=== PATIENT | female | born 1965 | race Caucasian/White ===

== ENCOUNTER 2019-04-11 11:17 | Emergency (ER) | payer OTHER ==
[2019-04-11 12:20] VITALS: BP 129/86
--- NOTE | 2019-04-11 12:32 | UC ---
UC General HPI - HPI Summary HPI Summary: pt is c/o "an ache" to the front and back of her L shoulder x 3 months that is worsening. no hx of an acute injury. it has become constant over the past 3 days. self tx once yesterday with a single dose of motrin. no neck pain. no numb or weakness to the hand. - History of Current Complaint Chief Complaint: UCGeneralIllness Stated Complaint: LEFT SHOULDER PAIN Time Seen by Provider: 04/11/19 12:17 Hx Obtained From: Patient Hx Last Menstrual Period: pt post menopausal Onset/Duration: Gradual Onset Timing: Constant Pain Intensity: 8 Aggravating: any movement Associated Signs & Symptoms: Negative: Fever - Allergy/Home Medications Allergies/Adverse Reactions: Allergies Allergy/AdvReac Type Severity Reaction Status Date / Time No Known Allergies Allergy Verified 04/11/19 12:22 Home Medications: Home Medications Calcium Carbonate [Calcium] 500 mg PO BID 04/11/19 [History Confirmed 04/11/19] Levothyroxine TAB* [Synthroid 100 MCG TAB*] 100 mcg PO DAILY 04/11/19 [History Confirmed 04/11/19] busPIRone TAB* [Buspar TAB *] 15 mg PO TID 04/11/19 [History Confirmed 04/11/19] PMH/Surg Hx/FS Hx/Imm Hx Endocrine History: Thyroid Disease Psychological History: Depression - Surgical History Surgical History: Yes Surgery Procedure, Year, and Place: thyroidectomy 2015 - Family History Known Family History: Positive: Non-Contributory - Social History Occupation: Employed Full-time Alcohol Use: None Substance Use Type: None Smoking Status (MU): Current Every Day Smoker Type: Cigarettes Amount Used/How Often: 1 ppd - Immunization History Vaccination Up to Date: Yes Review of Systems All Other Systems Reviewed And Are Negative: No Constitutional: Negative: Fever Motor: Positive: Decreased ROM - L shoulder Neurological: Negative: Weakness, Paresthesia, Numbness Physical Exam Triage Information Reviewed: Yes Appearance: Well-Appearing Vital Signs: Initial Vital Signs Temp 97.9 F 04/11/19 12:14 Pulse 85 04/11/19 12:14 Resp 16 04/11/19 12:14 BP 129/86 04/11/19 12:14 Pulse Ox 99 04/11/19 12:14 Vital Signs Reviewed: Yes Eyes: Positive: Conjunctiva Clear Neck: Positive: Supple, Nontender, No Lymphadenopathy Respiratory: Positive: Lungs clear Cardiovascular: Positive: RRR Musculoskeletal: Positive: Other: - LUE: anterior shoulder with slight swelling only when compared to R. Tender over anterior shoulder and bicep tendon. shoulder ROM both active and passive limited in all directions by pain thus unable to do a drop arm test and anterior stressing of the shouler joint. Elbow , wrist and hand are non tender and have full s/v/m function. Neurological: Positive: Alert Psychological: Positive: Age Appropriate Behavior Skin Exam: Normal Skin: Negative: Rashes Diagnostics - Radiology No standard instances Radiology Interpretation Completed By: Radiologist - IMPRESSION: Calcific tendinitis of the distal supraspinatus tendon without fracture. There may be calcific tendinitis of other muscles of the rotator cuff.. Course/Dx - Differential Dx - Multi-Symptom Differential Diagnoses: Other - bursitis, tendinitis, rotator cuff pathology and less likely frozen shoulder. no concern for fx or infection. - Diagnoses Provider Diagnosis: Calcific tendinitis Discharge - Sign-Out/Discharge Documenting (check all that apply): Patient Departure All imaging exams completed and their final reports reviewed: Yes - Discharge Plan Condition: Stable Disposition: HOME Prescriptions: Naproxen [Naprosyn 500 mg tab] 500 mg PO BID 5 Days #10 tablet Patient Education Materials: Calcific Tendinitis (ED) Forms: *Work Release Referrals: Alan Tuttle MD [Medical Doctor] - As Soon As Possible - Billing Disposition and Condition Condition: STABLE Disposition: Home
== END 2019-04-11 13:48 | disposition home or self-care (01) ==
LOC: UCCORT 11:17
DX: M75.32 Calcific tendinitis of left shoulder (principal); E07.9 Disorder of thyroid, unspecified; F32.9 Major depressive disorder, single episode, unspecified; F17.210 Nicotine dependence, cigarettes, uncomplicated; Z79.890 Hormone replacement therapy; Z79.899 Other long term (current) drug therapy
CPT/HCPCS: 99213; G0463